=== PATIENT | male | born 1940 | race Caucasian/White ===

== ENCOUNTER 2019-04-02 07:35 | Observation (INO) | payer MEDICARE, BC ==
[~2019-04-02] VITALS: Ht 177.8 cm; Wt 79.5 kg
[2019-04-02 08:04] LABS: BASOPHILS # (AUTO) 0.1 X10'3 (0-0.2); BASOPHILS % (AUTO) 1.3 % (0-1); EOSINOPHILS % (AUTO) 0.4 % (0-6); HEMATOCRIT 46.6 % (42.0-52.0); HEMOGLOBIN 16.1 g/dl (14.0-17.9); LYMPHOCYTES % (AUTO) 32.8 % (21-51); MEAN CORPUSCULAR HEMOGLOBIN 33.4 PG (27.0-31.0); MEAN CORPUSCULAR HGB CONC 34.6 g/dL (33.0-36.5); MEAN CORPUSCULAR VOLUME 96.5 FL (78-98); MEAN PLATELET VOLUME 8.2 FL (7.4-10.4); MONOCYTES # (AUTO) 0.6 X10'3 (0-0.9); MONOCYTES % (AUTO) 9.6 % (2-12); NEUTROPHILS # (AUTO) 3.3 X10'3 (1.8-7.7); NEUTROPHILS % (AUTO) 55.9 % (42-75); PLATELET COUNT 139 X10'3 (140-440); RED BLOOD COUNT 4.83 X10'6 (4.70-6.10); RED CELL DISTRIBUTION WIDTH 12.4 % (11.5-14.5)
[2019-04-02 08:12] LABS: PARTIAL THROMBOPLASTIN TIME 28 SECONDS (22-32)
[2019-04-02 08:16] LABS: ALANINE AMINOTRANSFERASE 26 U/L (12-78); ALBUMIN 3.7 G/DL (3.4-5.0); ALBUMIN/GLOBULIN RATIO 1.1 (1.1-1.5); ALKALINE PHOSPHATASE 62 IU/L (46-116); ANION GAP 9 (8-16); ASPARTATE AMINO TRANSFERASE 21 U/L (10-37); BILIRUBIN,TOTAL 0.6 MG/DL (0.1-1.0); BLOOD UREA NITROGEN 15 MG/DL (7-18); BUN/CREATININE RATIO 16.1 (5.4-32.0); CALCIUM 8.7 MG/DL (8.5-10.1); CHLORIDE 107 MMOL/L (99-107); CREATININE 0.93 MG/DL (0.60-1.10); GLUCOSE 95 MG/DL (70-104); POTASSIUM 3.6 MMOL/L (3.5-5.1); SODIUM 141 MMOL/L (135-145); TOTAL CARBON DIOXIDE 24.9 MMOL/L (24-32); eGFR 79 ML/MIN
[2019-04-02] MEDS ORDERED: aspirin 81mg tab.chew PO ONE (08:30)
[2019-04-02] MEDS ORDERED: cloNIDine 0.1 mg tablet PO ONE (10:00)
[2019-04-02] MEDS ORDERED: ipratropium/albuterol 3ml nebule NEB PRN (10:30)
[2019-04-02] MEDS ORDERED: mag hydrox/Alum hydrox/simeth 30ml oral suspension PO PRN (10:30)
[2019-04-02] MEDS ORDERED: ondansetron/PF 4mg/2ml inj IV PRN (10:30)
[2019-04-02] MEDS ORDERED: magnesium 4gm in 100ml NS 100 ML IV PRN (10:30)
[2019-04-02] MEDS ORDERED: magnesium 2GM in 50ml NS 50 ML IV PRN (10:30)
[2019-04-02] MEDS ORDERED: docusate sod 100mg capsule PO PRN (10:30)
[2019-04-02] MEDS ORDERED: potassium CL 10mEq/100ml bag 100 ML IV PRN ×2 (10:30)
[2019-04-02] MEDS ORDERED: acetaminophen 325mg tablet PO PRN (10:30)
[2019-04-02] MEDS ORDERED: potassium Cl 20 mEq SR tablet PO PRN ×2 (10:30)
--- NOTE | 2019-04-02 10:30 | NUR ---
ECHO IN PROGRESS
[2019-04-02] MEDS ORDERED: CELE200C PO (10:32)
[2019-04-02] MEDS ORDERED: FLEC100T2 PO (10:32)
[2019-04-02] MEDS ORDERED: VERA180T11 PO (10:33)
[2019-04-02] MEDS ORDERED: ATOR10TA PO (10:33)
[2019-04-02] MEDS ORDERED: ASPI81TA44 PO (10:34)
[2019-04-02] MEDS ORDERED: FLUT16SP2 BOTHNARES (10:35)
[2019-04-02] MEDS ORDERED: OMEP40CA13 PO (10:36)
[2019-04-02] MEDS ORDERED: aminophylline 250mg/10ml inj. IV PRN (10:40)
[2019-04-02] MEDS ORDERED: metoprolol tartrate 1mg/ml inj IV PRN (10:40)
[2019-04-02] MEDS ORDERED: regadenoson 0.4mg/5ml syringe IV ONE (10:40)
[2019-04-02] MEDS ORDERED: nitroGLYCERIN 0.4mg SUBLingual tab SL PRN (10:40)
--- NOTE | 2019-04-02 11:44 | NUR ---
SPOKE TO [facility], PATIENT HAS NOT HAD ANY CAFFEINE TODAY, [facility] IS TRYING TO GET HIM SCANNED TODAY
[2019-04-02] MEDS ORDERED: ATOR20TA PO (11:45)
[2019-04-02] MEDS ORDERED: non-formulary drug (Fluticasone Propionate (Flonase) 2 SPRAYS) BOTHNARES PRN (11:45)
[2019-04-02] MEDS ORDERED: celeCOXIB 100mg capsule PO PRN (12:00)
[2019-04-02] MEDS ORDERED: flecainide 50mg tablet PO SCH (12:00)
--- NOTE | 2019-04-02 12:02 | NUR ---
CALLED [facility] TO SEE WHAT TIME AND IF THEY ARE DOING HIS LEXISCAN TODAY; JOSE MA IN [facility] WILL CALL ME BACK
--- NOTE | 2019-04-02 12:08 | NUR ---
[facility] CALLED BACK, YANG SCAN WILL PROBABLY BE DONE IN THE AM
--- NOTE | 2019-04-02 13:27 | NUR ---
CALLED TO GIVE REPORT TO ANIL YU "SHE IS IN A ROOM"
--- NOTE | 2019-04-02 13:38 | NUR ---
received report from javier chowdary in er
--- NOTE | 2019-04-02 13:39 | NUR ---
PATIENT TO THE FLOOR MONITORED WITH RN WITH ALL HIS BELONGINGS
[2019-04-02 14:00] VITALS: BP 150/75
[2019-04-02] MEDS ORDERED: HYDROcodone/acetaminophen 10/325mg tab PO PRN (15:10)
[2019-04-02 18:00] VITALS: BP 129/69
--- NOTE | 2019-04-02 18:10 | NUR ---
GAVE REPORT TO ANIL REICH
[2019-04-02] MEDS ORDERED: non-formulary drug (Flecainide Acetate 1 TAB) PO SCH (20:00)
[2019-04-02] MEDS: flecainide 50mg tablet PO SCH (20:41)
[2019-04-02] MEDS ORDERED: verapamil SR 180mg tablet PO ONE (20:50)
[2019-04-02] MEDS ORDERED: atorvastatin 20mg tablet PO ONE (20:50)
[2019-04-02] MEDS ORDERED: aspirin 81mg tablet.DR PO SCH (21:00)
[2019-04-02 22:00] VITALS: BP 144/78
[2019-04-03] VITALS (15 sets, daily range): BP systolic 117–153; BP diastolic 64–85
[2019-04-03] MEDS ORDERED: Melatonin 3mg tablet PO SCH (00:50)
[2019-04-03 06:00] LABS: BASOPHILS % (AUTO) 0.4 % (0-1); EOSINOPHILS % (AUTO) 0.4 % (0-6); HEMATOCRIT 43.1 % (42.0-52.0); HEMOGLOBIN 14.8 g/dl (14.0-17.9); LYMPHOCYTES % (AUTO) 29.2 % (21-51); MEAN CORPUSCULAR HEMOGLOBIN 33.4 PG (27.0-31.0); MEAN CORPUSCULAR HGB CONC 34.3 g/dL (33.0-36.5); MEAN CORPUSCULAR VOLUME 97.2 FL (78-98); MEAN PLATELET VOLUME 8.4 FL (7.4-10.4); MONOCYTES # (AUTO) 0.7 X10'3 (0-0.9); MONOCYTES % (AUTO) 10.1 % (2-12); NEUTROPHILS # (AUTO) 4.1 X10'3 (1.8-7.7); NEUTROPHILS % (AUTO) 59.9 % (42-75); PLATELET COUNT 135 X10'3 (140-440); RED BLOOD COUNT 4.43 X10'6 (4.70-6.10); RED CELL DISTRIBUTION WIDTH 12.7 % (11.5-14.5); WHITE BLOOD COUNT 6.8 X10'3 (4.5-11.0)
--- NOTE | 2019-04-03 06:00 | NUR ---
Patient in room ORTHO 4006. I have received report from and had the opportunity to ask questions and assume patient care ANIL Morales.
[2019-04-03 06:05] LABS: CHOL/HDL RATIO 3.9 (0.00-4.99); CHOLESTEROL 188 MG/DL (0-200); HDL CHOLESTEROL 48 MG/DL (35-60); LDL CHOLESTEROL 118 MG/DL (50-100); MAGNESIUM 1.9 MG/DL (1.5-2.4); TRIGLYCERIDES 109 MG/DL (20-135)
--- NOTE | 2019-04-03 06:24 | NUR ---
reported to days. noted pt NPO for jenni
[2019-04-03] MEDS ORDERED: pantoprazole 40mg Tablet.DR PO SCH (07:30)
[2019-04-03] MEDS ORDERED: K and/or MAG REPLACEMENT MC SCH (08:00)
[2019-04-03] MEDS ORDERED: non-formulary drug (Omeprazole (Prilosec) 1 CAP) PO SCH (08:00)
[2019-04-03] MEDS ORDERED: atorvastatin 20mg tablet PO SCH (08:00)
[2019-04-03] MEDS ORDERED: non-formulary drug (Celecoxib (Celebrex) 1 CAP) PO SCH (08:00)
[2019-04-03] MEDS ORDERED: enoxaparin 40mg/0.4ml syringe SQ SCH (08:00)
[2019-04-03] MEDS ORDERED: verapamil SR 180mg tablet PO SCH (08:00)
[2019-04-03] MEDS ORDERED: non-formulary drug (Atorvastatin Calcium (Lipitor) 1 TAB) PO SCH (08:00)
[2019-04-03] MEDS ORDERED: fluticasone nasal spray 16GM bottle NS SCH (08:00)
[2019-04-03] MEDS: flecainide 50mg tablet PO SCH (10:31)
[2019-04-03 11:51] LABS: ALANINE AMINOTRANSFERASE 30 U/L (12-78); ALBUMIN 3.4 G/DL (3.4-5.0); ALBUMIN/GLOBULIN RATIO 1.1 (1.1-1.5); ALKALINE PHOSPHATASE 57 IU/L (46-116); ANION GAP 9 (8-16); ASPARTATE AMINO TRANSFERASE 20 U/L (10-37); BILIRUBIN,TOTAL 0.9 MG/DL (0.1-1.0); BLOOD UREA NITROGEN 11 MG/DL (7-18); BUN/CREATININE RATIO 13.9 (5.4-32.0); CALCIUM 8.6 MG/DL (8.5-10.1); CHLORIDE 106 MMOL/L (99-107); CREATININE 0.79 MG/DL (0.60-1.10); GLUCOSE 98 MG/DL (70-104); POTASSIUM 3.9 MMOL/L (3.5-5.1); SODIUM 141 MMOL/L (135-145); TOTAL CARBON DIOXIDE 26.3 MMOL/L (24-32); TOTAL PROTEIN 6.5 G/DL (6.4-8.2); eGFR > 90 ML/MIN
[2019-04-03] MEDS ORDERED: iohexol 350 MG/ML 50ML vial IV ONE (13:52)
[2019-04-03] MEDS ORDERED: nitroGLYCERIN-Tridil 50MG/D5W 250 ML IV ONE (13:52)
[2019-04-03] MEDS ORDERED: LIDOcaine 1% (10mg/ml)w/preservative injection 20ml MDV ONE (13:52)
[2019-04-03] MEDS ORDERED: iohexol 350MG/ML 100ml bottle IV ONE (13:52)
[2019-04-03] MEDS ORDERED: verapamil 2.5 mg/ml inj IV ONE (13:52)
[2019-04-03] MEDS ORDERED: heparin 1,000unit/ml 10ml vial 10 ML ONE (13:52)
[2019-04-03] MEDS ORDERED: midazolam 2 mg/2 ml injection ONE (13:55)
[2019-04-03] MEDS ORDERED: fentaNYL/PF 50MCG/1 ML 2ML syringe ONE (13:55)
[2019-04-03] MEDS ORDERED: normal saline 1000ml 1,000 ML IV ONE (15:45)
[2019-04-03] MEDS ORDERED: APIX5TAB3 PO (17:20)
[2019-04-03] MEDS ORDERED: ATOR20TA66 PO (17:20)
--- NOTE | 2019-04-03 18:45 | NUR ---
Patient in room ORTHO 4006. I have received report from ANIL Hernandes and had the opportunity to ask questions and assume patient care. Addendum: 04/03/19 at 1845 by Talia Gamble RN Amended: Links added.
--- NOTE | 2019-04-03 19:10 | NUR ---
Band-aid placed over R wrist cath site then some sterile gauze and tape.
--- NOTE | 2019-04-03 19:30 | NUR ---
Carl Davenport PCT walked pt out of hospital went over puncture site with present, told not to use R wrist as would often as L wrist for day or [address] PATEL office if s/s infection, pt had to be told couple time about discharge instuctions as well as .
== END 2019-04-03 19:30 | disposition home or self-care (01) ==
LOC: ER 07:36 → ORTHO 4S 13:49 → CMPBEDREQ 19:42
PROVIDERS: ADMIT Family Medicine; ATTEND Family Medicine
DX: R07.2 Precordial pain (principal); E78.00 Pure hypercholesterolemia, unspecified; F17.210 Nicotine dependence, cigarettes, uncomplicated; E78.5 Hyperlipidemia, unspecified; I48.2 Chronic atrial fibrillation; Z79.82 Long term (current) use of aspirin; I25.10 Atherosclerotic heart disease of native coronary artery without angina pectoris; K21.9 Gastro-esophageal reflux disease without esophagitis
CPT/HCPCS: 36415; 71045; 78451; 80053; 80061; 83735; 84484; 85025; 85027; 85610; 85730; 87081; 93005; 93017; 93306; 93458; 94760; 96372; 99284; A9500; C1769; C1894; G0378; J1644; J2001; J2250; J2785; J3010; J7030; Q9967; 99152; 99153; A4620; A6258; J1650; J3490

== ENCOUNTER 2020-02-04 17:22 | Inpatient (IN) | payer MEDICARE, BC ==
[~2020-02-04] VITALS: Ht 175.3 cm; Wt 72.1 kg
[~2020-02-04 17:22] MED LIST: APIX5TAB3 PO; ATOR20TA66 PO; FLEC100T2 PO; FLUT16SP2 BOTHNARES; OMEP40CA13 PO; VERA180T11 PO
--- NOTE | 2020-02-04 17:38 | NUR ---
Dr. Cedeno at bedside.
--- NOTE | 2020-02-04 17:40 | NUR ---
patient placed on Dr valencia Livingston at bedside.
[2020-02-04 18:03] LABS: BASOPHILS % (AUTO) 0.5 % (0-1); EOSINOPHILS % (AUTO) 0.2 % (0-6); HEMATOCRIT 39.5 % (42.0-52.0); HEMOGLOBIN 13.7 g/dl (14.0-17.9); LYMPHOCYTES # (AUTO) 2.5 X10'3 (1.1-4.8); LYMPHOCYTES % (AUTO) 28.1 % (21-51); MEAN CORPUSCULAR HEMOGLOBIN 34.3 PG (27.0-31.0); MEAN CORPUSCULAR HGB CONC 34.7 g/dL (33.0-36.5); MEAN CORPUSCULAR VOLUME 98.8 FL (78-98); MEAN PLATELET VOLUME 8.1 FL (7.4-10.4); MONOCYTES # (AUTO) 0.9 X10'3 (0-0.9); MONOCYTES % (AUTO) 10.5 % (2-12); NEUTROPHILS # (AUTO) 5.3 X10'3 (1.8-7.7); NEUTROPHILS % (AUTO) 60.7 % (42-75); PLATELET COUNT 174 X10'3 (140-440); RED CELL DISTRIBUTION WIDTH 14.5 % (11.5-14.5); WHITE BLOOD COUNT 8.8 X10'3 (4.5-11.0)
--- NOTE | 2020-02-04 18:03 | NUR ---
Pt continues to state "I dont feel good." Remains tachycardic, hypotensive. MD aware.
[2020-02-04] MEDS ORDERED: etomidate 2mg/ml inj. IV ONE (18:10)
[2020-02-04 18:18] LABS: ALANINE AMINOTRANSFERASE 19 U/L (12-78); ALBUMIN 2.7 G/DL (3.4-5.0); ALBUMIN/GLOBULIN RATIO 1.2 (1.1-1.5); ALKALINE PHOSPHATASE 47 IU/L (46-116); ANION GAP 12 (8-16); ASPARTATE AMINO TRANSFERASE 20 U/L (10-37); BILIRUBIN,TOTAL 0.5 MG/DL (0.1-1.0); BLOOD UREA NITROGEN 18 MG/DL (7-18); BUN/CREATININE RATIO 18.8 (5.4-32.0); CALCIUM 7.4 MG/DL (8.5-10.1); CHLORIDE 110 MMOL/L (99-107); CREATININE 0.96 MG/DL (0.60-1.10); GLUCOSE 90 MG/DL (70-104); POTASSIUM 3.3 MMOL/L (3.5-5.1); SODIUM 143 MMOL/L (135-145); TOTAL CARBON DIOXIDE 21.3 MMOL/L (24-32); eGFR 76 ML/MIN
--- NOTE | 2020-02-04 18:23 | NUR ---
0 given etomidate 10mg 1820: defib sync 150- not responding 1821: defib 200 sync- not responding Md to contact road packer operator.
[2020-02-04] MEDS ORDERED: NORepinephrine inj. 16 MG in normal saline 500ml IV soln 484 ML IV SCH ×4 (18:35)
[2020-02-04] MEDS ORDERED: amiodarone 150mg/dext, iso-os 100 ML IV ONE (18:35)
[2020-02-04] MEDS ORDERED: haloperidol lactate 5mg/ml inj IM ONE (18:45)
[2020-02-04] MEDS ORDERED: ASPI-1265 PO (18:54)
[2020-02-04] MEDS: amiodarone/D5 360MG/200ML BAG 200 ML IV SCH (19:12)
[2020-02-04] MEDS ORDERED: CELE-193 PO (19:24)
[2020-02-04] MEDS ORDERED: OMEP40CA13 PO (19:29)
[2020-02-04] MEDS ORDERED: LACT1CAP75 PO (19:29)
[2020-02-04] MEDS ORDERED: potassium CL 10mEq/100ml bag 100 ML IV PRN (20:30)
[2020-02-04] MEDS ORDERED: NORepinephrine 8mg/ 250ml NS 250 ML IV PRN (20:30)
[2020-02-04] MEDS ORDERED: morphine 2 MG/ML inj. syringe IV PRN (20:30)
[2020-02-04] MEDS ORDERED: ondansetron/PF 4mg/2ml inj IV PRN (20:30)
[2020-02-04] MEDS ORDERED: normal saline 1000ml 1,000 ML IV ONE (20:30)
[2020-02-04] MEDS ORDERED: potassium Cl 20 mEq SR tablet PO PRN (20:30)
[2020-02-04] MEDS ORDERED: morphine 4 MG/ML inj SYRINge IV PRN (20:30)
[2020-02-04] MEDS ORDERED: magnesium hydroxide 30ml (MOM) UD suspension PO PRN (20:30)
[2020-02-04] MEDS ORDERED: acetaminophen 325mg tablet PO PRN ×2 (20:30)
[2020-02-04 21:12] LABS: CLARITY,URINE CLEAR (Clear); COLOR,URINE YELLOW (Yellow); GLUCOSE, URINE NEGATIVE (Neg); KETONES,URINE 15 mg/dl (Neg); LEUKOCYTE ESTERASE ,URINE NEGATIVE (Neg); NITRITES, URINE NEGATIVE (Neg); OCCULT BLOOD,URINE TRACE-INTACT (Neg); PROTEIN,URINE NEGATIVE (Neg); UROBILINOGEN,URINE 0.2 E.U/dL (0.2-1.0)
[2020-02-04 21:13] LABS: UA COLLECTION TYPE URINAL
[2020-02-04 21:20] LABS: RBC,URINE NONE SEEN /HPF (0-2); WBC,URINE 0-4 /HPF (0-4)
[2020-02-04 21:21] LABS: BACTERIA,URINE 4+ /HPF (Neg); SQUAMOUS EPITHELIAL CELL,UR FEW /LPF (FEW)
[2020-02-04] MEDS ORDERED: heparin 10,000 units/1 ML INJ IV ONE ×2 (21:35→22:40)
[2020-02-04] MEDS ORDERED: aspirin 325mg tablet PO ONE (21:35)
[2020-02-04] MEDS ORDERED: heparin 10,000 units/1 ML INJ IV PRN ×2 (21:35→22:40)
--- NOTE | 2020-02-04 21:37 | NUR ---
Report Via Telephone [employer] Cap.
[2020-02-04 22:00] VITALS: BP 109/60
[2020-02-04] MEDS: K, MAG and/or Phos replacement - Verify level? MC SCH (22:00)
--- NOTE | 2020-02-04 22:25 | NUR ---
Patient in room ED 2. I have received report from Cap RN and had the opportunity to ask questions and assume patient care.
--- NOTE | 2020-02-04 22:26 | NUR ---
Impulsive, Forgetful, fixated on needing to use the bathroom. Urinal provided, pt states he "Will Try" and then asks to use the bathroom. Bed alarm on and call light in hand, frequent rounding, bed low and locked.
[2020-02-04] MEDS ORDERED: heparin 25,000 UNIT/250ml bag 250 ML IV SCH (22:38)
[2020-02-04 22:43] LABS: BASOPHILS % (AUTO) 0.2 % (0-1); EOSINOPHILS % (AUTO) 0 % (0-6); HEMATOCRIT 41.3 % (42.0-52.0); HEMOGLOBIN 14.1 g/dl (14.0-17.9); LYMPHOCYTES # (AUTO) 1.4 X10'3 (1.1-4.8); LYMPHOCYTES % (AUTO) 14.9 % (21-51); MEAN CORPUSCULAR HEMOGLOBIN 33.8 PG (27.0-31.0); MEAN CORPUSCULAR HGB CONC 34.1 g/dL (33.0-36.5); MEAN CORPUSCULAR VOLUME 99.1 FL (78-98); MEAN PLATELET VOLUME 8.1 FL (7.4-10.4); MONOCYTES # (AUTO) 0.7 X10'3 (0-0.9); NEUTROPHILS # (AUTO) 7.1 X10'3 (1.8-7.7); NEUTROPHILS % (AUTO) 76.9 % (42-75); PLATELET COUNT 150 X10'3 (140-440); RED BLOOD COUNT 4.16 X10'6 (4.70-6.10); RED CELL DISTRIBUTION WIDTH 14.9 % (11.5-14.5); WHITE BLOOD COUNT 9.3 X10'3 (4.5-11.0)
[2020-02-04 22:57] LABS: PARTIAL THROMBOPLASTIN TIME 27 SECONDS (22-32)
[2020-02-04 23:00] VITALS: BP 113/68
[2020-02-04] MEDS: heparin 25,000 UNIT/250ml bag 250 ML IV SCH (23:17)
[2020-02-05] VITALS (24 sets, daily range): BP systolic 108–168; BP diastolic 61–111
[2020-02-05] MEDS: CefTRIAXone 2gm/D5W 50ml 50 ML IV SCH ×2 (00:45→07:23)
[2020-02-05] MEDS: valacyclovir 500mg tablet PO SCH ×3 (00:46→15:36)
[2020-02-05] MEDS: potassium Cl 20 mEq SR tablet PO PRN (00:46)
[2020-02-05] MEDS: amiodarone/D5 360MG/200ML BAG 200 ML IV SCH (00:46)
--- NOTE | 2020-02-05 04:23 | NUR ---
Pt remains fixated on needing to use the bathroom. Impulsive, Will NOT use the call light or ask for help. Found multiple times trying to crawl out the bottom of the bed. Bed alarm is on and pt is continuously reminded, educated and reoriented to safety and need to ask for help. Pt is only able to urinate small amounts, Can Not and Will NOT Try to use urinal while in bed. States he has a 'Shy bladder' and 50% of attempts to urinate at bedside fail. He is helped back into bed and soon found to be trying to get up again without help because of his need to 'Use the restroom'. He was unable to use bedside commode as well. Close monitoring for safety.
[2020-02-05 05:59] LABS: BASOPHILS % (AUTO) 0.2 % (0-1); EOSINOPHILS % (AUTO) 0 % (0-6); HEMATOCRIT 38.2 % (42.0-52.0); HEMOGLOBIN 13.1 g/dl (14.0-17.9); LYMPHOCYTES # (AUTO) 1.2 X10'3 (1.1-4.8); MEAN CORPUSCULAR HEMOGLOBIN 33.9 PG (27.0-31.0); MEAN CORPUSCULAR HGB CONC 34.3 g/dL (33.0-36.5); MEAN CORPUSCULAR VOLUME 98.9 FL (78-98); MEAN PLATELET VOLUME 8.1 FL (7.4-10.4); MONOCYTES # (AUTO) 0.7 X10'3 (0-0.9); MONOCYTES % (AUTO) 9.4 % (2-12); NEUTROPHILS # (AUTO) 5.3 X10'3 (1.8-7.7); NEUTROPHILS % (AUTO) 73.4 % (42-75); PLATELET COUNT 147 X10'3 (140-440); RED BLOOD COUNT 3.86 X10'6 (4.70-6.10); RED CELL DISTRIBUTION WIDTH 14.7 % (11.5-14.5); WHITE BLOOD COUNT 7.3 X10'3 (4.5-11.0)
[2020-02-05 06:07] LABS: ALANINE AMINOTRANSFERASE 27 U/L (12-78); ALBUMIN 2.9 G/DL (3.4-5.0); ALBUMIN/GLOBULIN RATIO 1.3 (1.1-1.5); ALKALINE PHOSPHATASE 37 IU/L (46-116); ANION GAP 8 (8-16); ASPARTATE AMINO TRANSFERASE 63 U/L (10-37); BILIRUBIN,TOTAL 0.3 MG/DL (0.1-1.0); BLOOD UREA NITROGEN 13 MG/DL (7-18); BUN/CREATININE RATIO 16.3 (5.4-32.0); CALCIUM 7.7 MG/DL (8.5-10.1); CHLORIDE 110 MMOL/L (99-107); GLUCOSE 103 MG/DL (70-104); POTASSIUM 3.6 MMOL/L (3.5-5.1); SODIUM 143 MMOL/L (135-145); TOTAL CARBON DIOXIDE 24.8 MMOL/L (24-32); TOTAL PROTEIN 5.2 G/DL (6.4-8.2); eGFR > 90 ML/MIN
[2020-02-05 06:14] LABS: MAGNESIUM 1.8 MG/DL (1.5-2.4); PHOSPHORUS 3.5 MG/DL (2.3-4.5)
--- NOTE | 2020-02-05 06:36 | NUR ---
Problems reprioritized. Patient report given, questions answered & plan of care reviewed with Julienne MA.
[2020-02-05] MEDS: lactobacillus rhamnosus 10,000 MMU CELLS/CAPSULE PO SCH ×3 (07:22→20:00)
[2020-02-05] MEDS: flecainide 50mg tablet PO SCH ×3 (07:22→20:00)
[2020-02-05] MEDS: pantoprazole 40mg Tablet.DR PO SCH (07:22)
[2020-02-05] MEDS: atorvastatin 20mg tablet PO SCH (07:22)
[2020-02-05] MEDS: aspirin 81mg tab.chew PO SCH (07:23)
[2020-02-05] MEDS: celeCOXIB 100mg capsule PO SCH (07:23)
[2020-02-05] MEDS: K, MAG and/or Phos replacement - Verify level? MC SCH (08:25)
[2020-02-05] MEDS ORDERED: pantoprazole 40mg Tablet.DR PO SCH (10:39)
[2020-02-05] MEDS: amiodarone 200mg tablet PO SCH ×3 (10:58→20:00)
[2020-02-05] MEDS: metoprolol tartrate 12.5mg (1/2 tablet) PO SCH ×3 (10:58→20:00)
--- NOTE | 2020-02-05 14:50 | NUR ---
Dr. Martinez at bedside, recommended heart cath but pt wants to go home and see his own supervisor burling and joining. Pt is very confused at this time and is unable to make the right decision. Informed Dr. Mcgregor of patient's decision. Called Pt's , she wants the heart cath to be done before patient discharges. Called Dr. Martinez and gave him Ryann Leo's (Patient's ) number. Dr. Martinez will speak with her and call me with the plan.
--- NOTE | 2020-02-05 18:30 | NUR ---
Patient in room CICU 2008. I have received report from Julienne MA and had the opportunity to ask questions and assume patient care.
[2020-02-05] MEDS ORDERED: LORazepam 2 mg/ml vial IV ONE ×2 (19:30→22:35)
[2020-02-05] MEDS ORDERED: LORazepam 2 mg/ml vial ONE (19:32)
--- NOTE | 2020-02-05 20:00 | NUR ---
Pt became very combative and threatening to staff
[2020-02-05] MEDS: verapamil SR 180mg tablet PO SCH ×2 (20:07→21:00)
[2020-02-05] MEDS: HYDROcodone/acetaminophen 5mg/325mg tablet PO PRN (20:44)
--- NOTE | 2020-02-05 23:00 | NUR ---
193-Pt refused all PO medications after being very pleasant during dinner and bath. Educated pt on importance of cardiac medications but pt by this time was getting out of bed saying he was going home. Pt could not be redirected. 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 He began getting more angry when we attempted to keep him safe and within the bed for IV meds and monitoring wires. Hospital security was called to bedside and they attempted to talk to him and de-escalate the situation. His was called and she also tried to help reorient pt. Pt cussed her out and hung up on her. Lew Carlin NP was notified and wrist restraints were placed and 2mg Ativan given IV. Pt calmed enough to allow security to leave bedside. Pt continued to fight against wrist restraints and swing his legs over the bed rails. Pt's updated and son was requested to come in to help with the confusion and behavior issues. Pt's son Ivan arrived at 1939 and stayed at bedside until 2229. During this time pt's and friend were called and placed on speaker phone to continue to try to reorient pt. Pt complained of back pain, which is chronic for him. Fletcher 5 is what he takes at home and was ordered and after 20 minutes of persuading by son, pt finally took pain med, he still refused all other medications, saying he couldn't be sure of what we were giving him without seeing the prescription bottles that he usually has his home meds in. Pt son requesting more anti anxiety/sedative meds and he did not believe his dad would stop fighting and trying to get out of bed. After talking with Riley Carlin NP again an additional 2mg Ativan was given and pt is now sleeping. Bedside sitter remains and restraints were removed, pt positioned with pillows and 2L NC applied for his mouth breathing/snoring while sleeping.
[2020-02-06] VITALS (22 sets, daily range): BP systolic 136–176; BP diastolic 58–105
[2020-02-06] MEDS: heparin 25,000 UNIT/250ml bag 250 ML IV SCH ×3 (02:22→16:54)
[2020-02-06 05:14] LABS: BASOPHILS % (AUTO) 0.2 % (0-1); EOSINOPHILS % (AUTO) 0.1 % (0-6); HEMATOCRIT 38.7 % (42.0-52.0); HEMOGLOBIN 13.3 g/dl (14.0-17.9); LYMPHOCYTES # (AUTO) 1.3 X10'3 (1.1-4.8); LYMPHOCYTES % (AUTO) 20.8 % (21-51); MEAN CORPUSCULAR HEMOGLOBIN 33.7 PG (27.0-31.0); MEAN CORPUSCULAR HGB CONC 34.4 g/dL (33.0-36.5); MEAN CORPUSCULAR VOLUME 98.1 FL (78-98); MEAN PLATELET VOLUME 8.4 FL (7.4-10.4); MONOCYTES # (AUTO) 0.5 X10'3 (0-0.9); MONOCYTES % (AUTO) 8.8 % (2-12); NEUTROPHILS # (AUTO) 4.2 X10'3 (1.8-7.7); NEUTROPHILS % (AUTO) 70.1 % (42-75); PLATELET COUNT 144 X10'3 (140-440); RED BLOOD COUNT 3.94 X10'6 (4.70-6.10)
--- NOTE | 2020-02-06 05:22 | NUR ---
Pt slept through most of the night, 3 times incontinent of urine after waking up restless. He would fall asleep again soon after jessi care and linen change. Continued to pull at everything he could reach even during sleep, so restraints remained on. Pt remains confused and impulsive this morning.
[2020-02-06 05:26] LABS: ALANINE AMINOTRANSFERASE 61 U/L (12-78); ALBUMIN 2.9 G/DL (3.4-5.0); ALBUMIN/GLOBULIN RATIO 1.1 (1.1-1.5); ALKALINE PHOSPHATASE 50 IU/L (46-116); ANION GAP 9 (8-16); ASPARTATE AMINO TRANSFERASE 74 U/L (10-37); BILIRUBIN,TOTAL 0.7 MG/DL (0.1-1.0); BLOOD UREA NITROGEN 5 MG/DL (7-18); BUN/CREATININE RATIO 6.1 (5.4-32.0); CALCIUM 7.9 MG/DL (8.5-10.1); CHLORIDE 107 MMOL/L (99-107); CREATININE 0.82 MG/DL (0.60-1.10); GLUCOSE 90 MG/DL (70-104); MAGNESIUM 1.7 MG/DL (1.5-2.4); PHOSPHORUS 3.4 MG/DL (2.3-4.5); POTASSIUM 3.1 MMOL/L (3.5-5.1); SODIUM 142 MMOL/L (135-145); TOTAL CARBON DIOXIDE 26.1 MMOL/L (24-32); TOTAL PROTEIN 5.6 G/DL (6.4-8.2); eGFR > 90 ML/MIN
[2020-02-06] MEDS: potassium CL 10mEq/100ml bag 100 ML IV PRN ×2 (05:44→10:59)
--- NOTE | 2020-02-06 06:36 | NUR ---
Problems reprioritized. Patient report given, questions answered & plan of care reviewed with Nara MA.
--- NOTE | 2020-02-06 07:07 | NUR ---
Patient in room CICU 2009. I have received report from Jolie and had the opportunity to ask questions and assume patient care.
[2020-02-06] MEDS: pantoprazole 40mg Tablet.DR PO SCH (07:30)
[2020-02-06] MEDS: lactobacillus rhamnosus 10,000 MMU CELLS/CAPSULE PO SCH ×2 (08:00→20:00)
[2020-02-06] MEDS: metoprolol tartrate 12.5mg (1/2 tablet) PO SCH ×2 (08:00→20:42)
[2020-02-06] MEDS: flecainide 50mg tablet PO SCH (08:00)
[2020-02-06] MEDS: aspirin 81mg tab.chew PO SCH ×2 (08:00→09:29)
[2020-02-06] MEDS: amiodarone 200mg tablet PO SCH ×2 (08:00→09:29)
[2020-02-06] MEDS: valacyclovir 500mg tablet PO SCH ×3 (08:00→17:08)
[2020-02-06] MEDS: atorvastatin 20mg tablet PO SCH (08:00)
[2020-02-06] MEDS: celeCOXIB 100mg capsule PO SCH (08:00)
[2020-02-06] MEDS: K, MAG and/or Phos replacement - Verify level? MC SCH (08:25)
[2020-02-06] MEDS: CefTRIAXone 2gm/D5W 50ml 50 ML IV SCH (08:35)
--- NOTE | 2020-02-06 09:06 | NUR ---
PER DR Cantu ok to give amiodarone and aspirin, hold all other PO meds.
[2020-02-06] MEDS ORDERED: nitroGLYCERIN-Tridil 50MG/D5W 250 ML IV ONE (11:59)
[2020-02-06] MEDS ORDERED: midazolam 2 mg/2 ml injection ONE (11:59)
[2020-02-06] MEDS ORDERED: fentaNYL/PF 50MCG/1 ML 2ML syringe ONE (11:59)
[2020-02-06] MEDS ORDERED: LIDOcaine 1% (10mg/ml)w/preservative injection 20ml MDV ONE (11:59)
[2020-02-06] MEDS ORDERED: iohexol 350MG/ML 100ml bottle IV ONE (12:00)
[2020-02-06] MEDS ORDERED: iohexol 350 MG/ML 50ML vial IV ONE (12:00)
[2020-02-06] MEDS ORDERED: heparin 1,000unit/ml 10ml vial 10 ML ONE (12:00)
--- NOTE | 2020-02-06 12:22 | NUR ---
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
--- NOTE | 2020-02-06 13:30 | NUR ---
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 Refused procedure. Mentation checked. PT is confused. Denies knowing where he is. States he is at a fitness facility. Denies having any current cardiac problems and states he had a PR in 1977. problems. PT is impulsive and trying to get out of bed. PT re-oriented and re-educated.
--- NOTE | 2020-02-06 15:30 | NUR ---
Son Ivan arrived. States his DAD is confused. Suggested a 51/50 diagnosis. Spoke to charge and called DR Cantu. Orders received for a tele psych consultation. PT re-oriented and re educated. Remains confused and trying to get out of bed.
[2020-02-06] MEDS ORDERED: OLANZapine **IM** 10 mg inj. IM ONE (16:20)
[2020-02-06] MEDS ORDERED: OLANZapine **IM** 10 mg inj. IM PRN (16:30)
[2020-02-06 16:49] LABS: PARTIAL THROMBOPLASTIN TIME 50 SECONDS (22-32)
[2020-02-06] MEDS ORDERED: potassium chloride 10mEq ER tablet PO ONE (16:50)
--- NOTE | 2020-02-06 17:00 | NUR ---
Per Dr Cantu, DC heparin when bag finished.
[2020-02-06] MEDS: potassium Cl 20 mEq SR tablet PO PRN (17:07)
--- NOTE | 2020-02-06 18:26 | NUR ---
Problems reprioritized. Patient report given, questions answered & plan of care reviewed with Corwin MA.
--- NOTE | 2020-02-06 19:00 | NUR ---
Patient in room CICU 2008. I have received report from Karen MA and had the opportunity to ask questions and assume patient care.
--- NOTE | 2020-02-06 21:00 | NUR ---
PT agitated He was already given a dose of zyprexa IM. He is restless trying to get out of bed, He is confused, he thinks he is at home and he is calling out for his . An order for 1 mg Ativan IV was obtained by Jesenia Cooper NP.
[2020-02-06 22:18] LABS: PARTIAL THROMBOPLASTIN TIME 50 SECONDS (22-32)
[2020-02-06] MEDS ORDERED: LORazepam 2 mg/ml vial IV ONE (22:20)
[2020-02-07] VITALS (24 sets, daily range): BP systolic 124–178; BP diastolic 68–101
--- NOTE | 2020-02-07 06:15 | NUR ---
Patient in room CICU 2008. I have received report from Corwin and had the opportunity to ask questions and assume patient care.
[2020-02-07 06:29] LABS: BASOPHILS % (AUTO) 0.2 % (0-1); EOSINOPHILS % (AUTO) 0.1 % (0-6); HEMATOCRIT 46.7 % (42.0-52.0); HEMOGLOBIN 16.5 g/dl (14.0-17.9); LYMPHOCYTES # (AUTO) 1.1 X10'3 (1.1-4.8); LYMPHOCYTES % (AUTO) 11.5 % (21-51); MEAN CORPUSCULAR HEMOGLOBIN 34.3 PG (27.0-31.0); MEAN CORPUSCULAR HGB CONC 35.3 g/dL (33.0-36.5); MEAN CORPUSCULAR VOLUME 97.2 FL (78-98); MEAN PLATELET VOLUME 8.5 FL (7.4-10.4); MONOCYTES % (AUTO) 10.6 % (2-12); NEUTROPHILS # (AUTO) 7.3 X10'3 (1.8-7.7); NEUTROPHILS % (AUTO) 77.6 % (42-75); PLATELET COUNT 160 X10'3 (140-440); RED CELL DISTRIBUTION WIDTH 14.7 % (11.5-14.5); WHITE BLOOD COUNT 9.4 X10'3 (4.5-11.0)
[2020-02-07 06:38] LABS: ALANINE AMINOTRANSFERASE 77 U/L (12-78); ALBUMIN 3.7 G/DL (3.4-5.0); ALBUMIN/GLOBULIN RATIO 1.1 (1.1-1.5); ALKALINE PHOSPHATASE 66 IU/L (46-116); ANION GAP 6 (8-16); ASPARTATE AMINO TRANSFERASE 63 U/L (10-37); BILIRUBIN,TOTAL 1.1 MG/DL (0.1-1.0); BLOOD UREA NITROGEN 9 MG/DL (7-18); CALCIUM 9.1 MG/DL (8.5-10.1); CHLORIDE 99 MMOL/L (99-107); CREATININE 0.82 MG/DL (0.60-1.10); GLUCOSE 98 MG/DL (70-104); MAGNESIUM 1.9 MG/DL (1.5-2.4); POTASSIUM 3.3 MMOL/L (3.5-5.1); SODIUM 135 MMOL/L (135-145); TOTAL CARBON DIOXIDE 29.6 MMOL/L (24-32); eGFR > 90 ML/MIN
[2020-02-07] MEDS: amiodarone 200mg tablet PO SCH ×2 (08:31→19:50)
[2020-02-07] MEDS: lactobacillus rhamnosus 10,000 MMU CELLS/CAPSULE PO SCH ×2 (08:31→19:49)
[2020-02-07] MEDS: metoprolol tartrate 12.5mg (1/2 tablet) PO SCH ×2 (08:31→20:00)
[2020-02-07] MEDS: valacyclovir 500mg tablet PO SCH ×3 (08:31→19:56)
[2020-02-07] MEDS: pantoprazole 40mg Tablet.DR PO SCH (08:32)
[2020-02-07] MEDS: CefTRIAXone 2gm/D5W 50ml 50 ML IV SCH (08:32)
[2020-02-07] MEDS: atorvastatin 20mg tablet PO SCH (08:35)
[2020-02-07] MEDS: potassium Cl 20 mEq SR tablet PO PRN ×3 (08:49→19:50)
[2020-02-07] MEDS: K, MAG and/or Phos replacement - Verify level? MC SCH (08:50)
[2020-02-07] MEDS: heparin 25,000 UNIT/250ml bag 250 ML IV SCH (09:07)
--- NOTE | 2020-02-07 11:43 | NUR ---
Critical pTT 136; Heparin drip has been D/C'd
--- NOTE | 2020-02-07 13:11 | NUR ---
PT's is present wit PT. PT is awake and comfortable, conversing with . PT is confused.
--- NOTE | 2020-02-07 18:18 | NUR ---
Problems reprioritized. Patient report given, questions answered & plan of care reviewed with Corwin.
[2020-02-07] MEDS: HYDROcodone/acetaminophen 5mg/325mg tablet PO PRN (23:41)
[2020-02-08] VITALS (19 sets, daily range): BP systolic 112–164; BP diastolic 64–108
[2020-02-08 05:17] LABS: BASOPHILS % (AUTO) 0.2 % (0-1); EOSINOPHILS % (AUTO) 0.3 % (0-6); HEMATOCRIT 44.7 % (42.0-52.0); HEMOGLOBIN 15.6 g/dl (14.0-17.9); LYMPHOCYTES # (AUTO) 1.3 X10'3 (1.1-4.8); LYMPHOCYTES % (AUTO) 11.7 % (21-51); MEAN CORPUSCULAR HEMOGLOBIN 34.1 PG (27.0-31.0); MEAN CORPUSCULAR HGB CONC 34.8 g/dL (33.0-36.5); MEAN CORPUSCULAR VOLUME 98.1 FL (78-98); MEAN PLATELET VOLUME 8.4 FL (7.4-10.4); MONOCYTES # (AUTO) 1.4 X10'3 (0-0.9); MONOCYTES % (AUTO) 13.2 % (2-12); NEUTROPHILS % (AUTO) 74.6 % (42-75); PLATELET COUNT 162 X10'3 (140-440); RED BLOOD COUNT 4.56 X10'6 (4.70-6.10); RED CELL DISTRIBUTION WIDTH 14.9 % (11.5-14.5); WHITE BLOOD COUNT 10.8 X10'3 (4.5-11.0)
[2020-02-08 05:36] LABS: ALANINE AMINOTRANSFERASE 54 U/L (12-78); ALBUMIN 3.1 G/DL (3.4-5.0); ALKALINE PHOSPHATASE 59 IU/L (46-116); ANION GAP 6 (8-16); ASPARTATE AMINO TRANSFERASE 34 U/L (10-37); BILIRUBIN,TOTAL 1.1 MG/DL (0.1-1.0); BLOOD UREA NITROGEN 16 MG/DL (7-18); BUN/CREATININE RATIO 18.2 (5.4-32.0); CALCIUM 8.9 MG/DL (8.5-10.1); CHLORIDE 102 MMOL/L (99-107); CREATININE 0.88 MG/DL (0.60-1.10); GLUCOSE 106 MG/DL (70-104); POTASSIUM 4.1 MMOL/L (3.5-5.1); SODIUM 137 MMOL/L (135-145); TOTAL PROTEIN 6.3 G/DL (6.4-8.2); eGFR 84 ML/MIN
--- NOTE | 2020-02-08 06:15 | NUR ---
Patient in room CICU 2008. I have received report from Corwin and had the opportunity to ask questions and assume patient care.
[2020-02-08] MEDS: K, MAG and/or Phos replacement - Verify level? MC SCH (08:00)
[2020-02-08] MEDS: valacyclovir 500mg tablet PO SCH ×3 (08:15→15:56)
[2020-02-08] MEDS: pantoprazole 40mg Tablet.DR PO SCH (08:16)
[2020-02-08] MEDS: metoprolol tartrate 12.5mg (1/2 tablet) PO SCH ×2 (08:16→21:06)
[2020-02-08] MEDS: atorvastatin 20mg tablet PO SCH (08:16)
[2020-02-08] MEDS: aspirin 81mg tab.chew PO SCH (08:16)
[2020-02-08] MEDS: lactobacillus rhamnosus 10,000 MMU CELLS/CAPSULE PO SCH ×2 (08:16→21:07)
[2020-02-08] MEDS: CefTRIAXone 2gm/D5W 50ml 50 ML IV SCH (08:16)
[2020-02-08] MEDS: amiodarone 200mg tablet PO SCH ×2 (08:24→21:07)
--- NOTE | 2020-02-08 09:30 | NUR ---
PT's is present. PT is alert and comfortable. Ate 90% of breakfast.
[2020-02-08] MEDS: apixaban 5mg tablet PO SCH ×2 (12:26→21:07)
[2020-02-08] MEDS: HYDROcodone/acetaminophen 5mg/325mg tablet PO PRN (15:57)
--- NOTE | 2020-02-08 17:20 | NUR ---
Problems reprioritized. Patient report given, questions answered & plan of care reviewed with Gema.
--- NOTE | 2020-02-08 17:43 | NUR ---
PT taken to 3010 PCU with belongings and sitter.
--- NOTE | 2020-02-08 18:00 | NUR ---
Patient transferred to U 3010. Sitter at bedside. Report received via phone from Karen MA via phone prior to patient arrival on the floor. Admit VS taken and are stable. No signs of distress, no complaints at this time. Call light and items in reach.
--- NOTE | 2020-02-08 18:20 | NUR ---
Problems reprioritized. Patient report given, questions answered & plan of care reviewed with Kyle MA.
[2020-02-09] MEDS: valacyclovir 500mg tablet PO SCH ×2 (00:16→07:28)
[2020-02-09] MEDS: HYDROcodone/acetaminophen 5mg/325mg tablet PO PRN (01:24)
[2020-02-09 02:00] VITALS: BP 147/79
[2020-02-09 03:55] VITALS: BP 148/82
[2020-02-09 06:00] VITALS: BP 121/62
--- NOTE | 2020-02-09 06:00 | NUR ---
Patient in room PCU 3010. I have received report from Enrique MA and had the opportunity to ask questions and assume patient care. Patient was resting in bed at this time, sitter at bedside, offers no complaints, will continue to monitor.
--- NOTE | 2020-02-09 06:00 | NUR ---
Patient in room PCU 3010. I have received report from Enrique and had the opportunity to ask questions and assume patient care.
[2020-02-09 06:45] LABS: BASOPHILS % (AUTO) 0.2 % (0-1); EOSINOPHILS % (AUTO) 0.3 % (0-6); HEMATOCRIT 45.5 % (42.0-52.0); HEMOGLOBIN 15.8 g/dl (14.0-17.9); LYMPHOCYTES # (AUTO) 1.5 X10'3 (1.1-4.8); LYMPHOCYTES % (AUTO) 14.1 % (21-51); MEAN CORPUSCULAR HEMOGLOBIN 34.3 PG (27.0-31.0); MEAN CORPUSCULAR HGB CONC 34.7 g/dL (33.0-36.5); MEAN CORPUSCULAR VOLUME 98.8 FL (78-98); MEAN PLATELET VOLUME 8.7 FL (7.4-10.4); MONOCYTES # (AUTO) 1.2 X10'3 (0-0.9); MONOCYTES % (AUTO) 11.1 % (2-12); NEUTROPHILS # (AUTO) 7.8 X10'3 (1.8-7.7); NEUTROPHILS % (AUTO) 74.3 % (42-75); PLATELET COUNT 170 X10'3 (140-440); RED CELL DISTRIBUTION WIDTH 15.2 % (11.5-14.5); WHITE BLOOD COUNT 10.5 X10'3 (4.5-11.0)
[2020-02-09 07:08] LABS: ALANINE AMINOTRANSFERASE 47 U/L (12-78); ALBUMIN/GLOBULIN RATIO 0.9 (1.1-1.5); ALKALINE PHOSPHATASE 59 IU/L (46-116); ANION GAP 7 (8-16); ASPARTATE AMINO TRANSFERASE 23 U/L (10-37); BILIRUBIN,TOTAL 0.9 MG/DL (0.1-1.0); BLOOD UREA NITROGEN 14 MG/DL (7-18); BUN/CREATININE RATIO 15.4 (5.4-32.0); CALCIUM 8.9 MG/DL (8.5-10.1); CHLORIDE 102 MMOL/L (99-107); CREATININE 0.91 MG/DL (0.60-1.10); GLUCOSE 103 MG/DL (70-104); PHOSPHORUS 4.1 MG/DL (2.3-4.5); POTASSIUM 4.3 MMOL/L (3.5-5.1); SODIUM 138 MMOL/L (135-145); TOTAL CARBON DIOXIDE 28.6 MMOL/L (24-32); TOTAL PROTEIN 6.3 G/DL (6.4-8.2); eGFR 80 ML/MIN
[2020-02-09] MEDS: pantoprazole 40mg Tablet.DR PO SCH (07:26)
[2020-02-09] MEDS: amiodarone 200mg tablet PO SCH (07:27)
[2020-02-09] MEDS: lactobacillus rhamnosus 10,000 MMU CELLS/CAPSULE PO SCH (07:27)
[2020-02-09] MEDS: apixaban 5mg tablet PO SCH (07:27)
[2020-02-09] MEDS: atorvastatin 20mg tablet PO SCH (07:27)
[2020-02-09] MEDS: aspirin 81mg tab.chew PO SCH (07:27)
[2020-02-09] MEDS: metoprolol tartrate 12.5mg (1/2 tablet) PO SCH (07:29)
[2020-02-09] MEDS: K, MAG and/or Phos replacement - Verify level? MC SCH (08:00)
--- NOTE | 2020-02-09 09:33 | NUR ---
Spoke with Tele psych evaluation company, they will be faxing over the notes within the next 10 to 15 mins.
--- NOTE | 2020-02-09 10:55 | NUR ---
Spoke with Dr. Cantu at bedside and he said patient was clear to d/c today.
[2020-02-09 11:00] VITALS: BP 121/86
[2020-02-09] MEDS ORDERED: DONE5TAB7 PO ×2 (11:07→11:55)
[2020-02-09] MEDS ORDERED: METO25TA6 PO ×2 (11:07→11:55)
[2020-02-09] MEDS ORDERED: APIX5TAB3 PO ×2 (11:07→11:55)
[2020-02-09] MEDS ORDERED: VALA500T41 PO ×2 (11:07→11:55)
[2020-02-09] MEDS ORDERED: AMIO200T61 PO (11:49)
--- NOTE | 2020-02-09 12:57 | NUR ---
Initial: Pt admit w/ NSTEMI, afib RVR, psychosis PO 50% avg heart healthy diet fluctuating so far. Ensure Enlive TIDWM recommended; notified. LBM 02/07. Pt declines coronary angiogram per MD note. Will continue to monitor. Rec: 1. continue heart healthy diet; encourage PO 2. ensure enlive TIDWM 3. routine bowel care 4. wt per rx Addendum: 02/09/20 at [address] Amended: Links added.
[2020-02-09] MEDS ORDERED: lactose-reduced food (Ensure Enlive) - 237ml bottle PO SCH (13:00)
--- NOTE | 2020-02-09 13:19 | NUR ---
Patient was discharged to home and left in a private vehicle with his . PIVx2 were removed with cannula intact. Discharge instructions were reviewed with and patient and all questions were answered. RXs were called into to [facility] on [address] in [place]. Paper copies of Valcylovir, metoprolol, and Eliquis were handed to patient's .
--- NOTE | 2020-02-09 13:41 | NUR ---
[facility] documentation: I have reviewed and agree with interventions, assessments performed and documented by Sylvia MA. [facility] Medication Administration: For this medication-pass time frame, medication were reviewed, dispensed, administered and documented per hospital policy by Sylvia MA.
== END 2020-02-09 13:09 | disposition home health service (06) | DRG 281 ==
LOC: ER 17:23 → ED HOLD 20:30 → CICU 2S 21:55 → PCU 3S 02-08 18:03
PROVIDERS: ADMIT Internal Medicine Critical Care Medicine; ATTEND Internal Medicine Critical Care Medicine
PROC: 5A2204Z Restoration of Cardiac Rhythm, Single (ICD-10-PCS; principal; 2020-02-04)
DX: I48.0 Paroxysmal atrial fibrillation (principal); I21.4 Non-ST elevation (NSTEMI) myocardial infarction; R57.9 Shock, unspecified; B02.9 Zoster without complications; W06.XXXA Fall from bed, initial encounter; Z79.899 Other long term (current) drug therapy; I25.10 Atherosclerotic heart disease of native coronary artery without angina pectoris; E78.5 Hyperlipidemia, unspecified; K21.9 Gastro-esophageal reflux disease without esophagitis; E78.00 Pure hypercholesterolemia, unspecified; F03.90 Unspecified dementia, unspecified severity, without behavioral disturbance, psychotic disturbance, mood disturbance, and anxiety; F40.240 Claustrophobia; I10 Essential (primary) hypertension; I73.9 Peripheral vascular disease, unspecified; M19.90 Unspecified osteoarthritis, unspecified site; Y93.89 Activity, other specified; Y92.89 Other specified places as the place of occurrence of the external cause; Y99.8 Other external cause status
CPT/HCPCS: 36415; 70450; 71045; 72125; 80053; 81001; 83735; 84100; 84132; 84484; 85025; 85610; 85730; 87081; 87088; 93005; 93306; 97161; 97530; 99291; 99292; G0378; J0696; J1630; J1644; J2001; J2060; J2250; J3010; J3480; J3490; J7030; J7040; Q9967